=== PATIENT | male | born 1965 | race Caucasian/White ===

== ENCOUNTER 2024-10-20 15:02 | Emergency (ER) | payer MEDICAID ==
[~2024-10-20] VITALS: Ht 180.3 cm; Wt 86.0 kg
[2024-10-20 15:05] VITALS: BP 153/86; PULSE 105; RESP 17; TEMP 36.7; O2SAT 97
[2024-10-20 17:24] LABS: BASOPHILS % 0.4 % (0.0-2.0); EOSINOPHILS % 1.1 % (0.0-5.0); HEMATOCRIT. 41.6 % (42.0-52.0); HEMOGLOBIN. 13.7 g/dL (14.0-18.0); LYMPHOCYTES % 25.1 % (20.0-50.0); MEAN CORPUSCULAR HEMOGLOBIN 28.4 pg (28.0-32.0); MEAN CORPUSCULAR HGB CONC 32.8 g/dL (31.0-37.0); MEAN CORPUSCULAR VOLUME 86.4 fL (80.0-94.0); MEAN PLATELET VOLUME 7.2 fl (7.4-10.4); MONOCYTES % 6.9 % (2.0-8.0); NEUTROPHILS % 66.5 % (40.0-76.0); PLATELET 256 x1000/uL (130-400); RED BLOOD CELL COUNT 4.81 mill/uL (4.7-6.1); RED CELL DISTRIBUTION WIDTH 14.2 % (11.6-14.6); WHITE BLOOD COUNT 6.3 x1000/uL (4.5-11.0)
[2024-10-20 17:29] LABS: CHLORIDE 104 mEq/L (98-107); POTASSIUM 4.4 mEq/L (3.5-5.1); SODIUM 142 mEq/L (136-145)
[2024-10-20 17:30] LABS: CARBON DIOXIDE 30 mEq/L (21-32)
[2024-10-20 17:31] LABS: CALCIUM 9.7 mg/dL (8.7-10.4)
[2024-10-20 17:35] LABS: CREATININE 0.9 mg/dL (0.6-1.3); GLUCOSE 125 mg/dL (70-105)
[2024-10-20 17:36] LABS: UREA NITROGEN BLOOD 13 mg/dL (9-23)
[2024-10-20] MEDS: HYDROCODONE/ACETAMINOPHEN 5/325MG TABLET PO ONE (17:39)
[2024-10-20] MEDS: KETOROLAC 30MG/ML VIAL IM ONE (17:39)
[2024-10-20] MEDS ORDERED: CELE-116 MT (22:37)
[2024-10-20] MEDS ORDERED: CYCL5TAB3 MT (22:37)
== END 2024-10-20 22:57 | disposition home or self-care (01) ==
LOC: ER 15:02
DX: M54.2 Cervicalgia (principal); M54.9 Dorsalgia, unspecified; E11.9 Type 2 diabetes mellitus without complications; I10 Essential (primary) hypertension; Z88.0 Allergy status to penicillin; Z79.899 Other long term (current) drug therapy; V47.5XXA Car driver injured in collision with fixed or stationary object in traffic accident, initial encounter; Y93.89 Activity, other specified; Y92.89 Other specified places as the place of occurrence of the external cause; Y99.8 Other external cause status
CPT/HCPCS: 80048; 85025; 36415; 72125; 72128; 72131; 96372; 99285; J1885; Z7610; A4606